=== PATIENT | female | born 1980 | race Caucasian/White ===

== ENCOUNTER 2017-11-15 03:35 | Emergency (ER) | payer OTHER ==
[2017-11-15] MEDS ORDERED: MORPHINE 4 MG/ML SYR ONE (04:21)
[2017-11-15] MEDS ORDERED: ONDANSETRON 4 MG/2 ML VIAL ONE (04:21)
[2017-11-15] MEDS ORDERED: NA CHLORIDE 0.9% 1,000 ML ONE (04:21)
[2017-11-15] MEDS ORDERED: MAGNE/ALUM HYDROXD 30 ML UCUP ONE (04:28)
[2017-11-15] MEDS ORDERED: LIDOCAINE VISCOUS 2% SOLN 15 ML UDC ONE (04:28)
[2017-11-15 04:35] LABS: Absolute Lymphocytes (CBC) 0.7 K/uL (0.7-4.9); Absolute Monocytes 0.4 K/uL (0.1-1.3); Absolute Neutrophil 5.9 K/uL (1.8-8.0); Basophils % 0.4 % (0-1.3); Eosinophils % 0.3 % (0-4.4); Hematocrit 39.2 % (36.0-45.0); Lymphocytes % 10.4 % (15.3-44.8); MCH 31.1 pg (27.0-35.0); MCV 93.7 fL (80-100); MPV 8.3 fL (7.6-11.3); Monocytes % 5.3 % (3.3-12.3); RBC Red Blood Cell Count 4.18 M/uL (3.86-4.86)
[2017-11-15 04:53] LABS: Bicarbonate 25 mEq/L (21-31); Glucose Level 122 mg/dL (65-120); Lipase 19 U/L (22-51); Potassium 4.3 mEq/L (3.6-5.0); Sodium Level 136 mEq/L (135-145)
[2017-11-15 04:59] LABS: ALT/SGPT 30 IU/L (10-60); AST/SGOT 47 IU/L (10-42); Albumin 4.4 g/dL (3.2-5.5); Alkaline Phosphatase 54 IU/L (42-121); Amylase Level 191 U/L (28-100); BUN Blood Urea Nitrogen 15 mg/dL (6-20); Bilirubin Direct 0.1 mg/dL (0-0.2); Bilirubin Total 0.6 mg/dL (0.3-1.2); Protein, Total 7.7 g/dL (6.0-8.3)
[2017-11-15 05:10] LABS: Urine Bacteria <20 /HPF (<20); Urine Culture Reflex Order NOT NEEDED; Urine RBC <5 /HPF (NONE SEEN)
--- NOTE | 2017-11-15 05:11 | ER ---
Nurse's Notes [facility] Name: Hayde Cotton Age: 37 yrs Sex: Female : 1980 Arrival Date: 11/15/2017 Time: 03:38 Bed 5 Private MD: Diagnosis: Acute gastritis Presentation: 11/15 03:53 Presenting complaint: Patient states: that she is having abd pain, nausea and vomiting fc that started last night at 2300. Unable to hold anything down. Denies any diarrhea. Transition of care: patient was not received from another setting of care. Onset of symptoms was November 14, 2017 at 23:00. Initial Sepsis Screen: Does the patient meet any 2 criteria? No. Patient's initial sepsis screen is negative. Does the patient have a suspected source of infection? No. Patient's initial sepsis screen is negative. Care prior to arrival: None. 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 - Social history:: Smoking status: Patient/guardian denies using tobacco. Screenin:56 Abuse screen: Denies threats or abuse. Nutritional screening: No deficits noted. fc Tuberculosis screening: No symptoms or risk factors identified. Fall Risk None identified. Assessment: 04:06 Reassessment: Patient is alert, oriented x 3, equal unlabored respirations, skin ak1 warm/dry/pink. General: Appears uncomfortable, Behavior is calm, cooperative. Pain: Complains of pain in epigastric area. Neuro: No deficits noted. Cardiovascular: No deficits noted. Respiratory: No deficits noted. GI: Abdomen is flat, Bowel sounds present X 4 quads. Reports upper abdominal pain, nausea, vomiting, since midnight. : No signs and/or symptoms were reported regarding the genitourinary system. EENT: No signs and/or symptoms were reported regarding the EENT system. Derm: No signs and/or symptoms reported regarding the dermatologic system. Musculoskeletal: No signs and/or symptoms reported regarding the musculoskeletal system. 05:08 Reassessment: Patient appears in no apparent distress at this time. Patient is alert, ak1 oriented x 3, equal unlabored respirations, skin warm/dry/pink. Patient states feeling better. Patient states symptoms have improved. Vital Signs: 03:56 BP 129 / 79; Pulse 90; Resp 18; Temp 98.2(O); Pulse Ox 100% on R/A; Weight 71.21 kg fc (R); Height 5 ft. 2 in. (157.48 cm) (R); Pain 4/10; 04:06 BP 120 / 80; Pulse 89; Resp 18; Pulse Ox 100% on R/A; ak1 03:56 Body Mass Index 28.72 (71.21 kg, 157.48 cm) fc ED Course: 03:38 Patient arrived in ED. al2 03:54 Triage completed. fc 03:56 Arm band placed on Patient placed in an exam room, on a stretcher. fc 03:56 Patient has correct armband on for positive identification. Placed in gown. Bed in low fc position. Call light in reach. 04:12 Maurilio London MD is Attending Physician. pkl 04:16 Leona Batista, TIMUR is Primary Nurse. ak1 04:25 Inserted saline lock: 20 gauge in right antecubital area, using aseptic technique. ao ,using aseptic technique. By TIMUR Delgadillo Blood collected. 05:17 No provider procedures requiring assistance completed. IV discontinued, intact, ak1 bleeding controlled, No redness/swelling at site. Pressure dressing applied. Administered Medications: 04:24 Drug: Zofran 4 mg Route: IVP; Site: right antecubital; ao 05:05 Follow up: Response: No adverse reaction ak1 04:25 Drug: NS 0.9% 1000 ml Route: IV; Rate: 1000 ml; Site: right antecubital; ao 05:11 Follow up: IV Status: Completed infusion ak1 04:25 Drug: morphine 2 mg Route: IVP; Site: right antecubital; ao 05:05 Follow up: Response: No adverse reaction ak1 04:29 Drug: GI Cocktail without - (Maalox Suspension 30 ml, Lidocaine Liquid 2 % 15 ao ml) Route: PO; 05:05 Follow up: Response: No adverse reaction ak1 Outcome: 05:11 Discharge ordered by . ok 05:17 Discharged to home ambulatory, with family. ak1 05:17 Condition: good 05:17 Discharge instructions given to patient, family, Instructed on discharge instructions, follow up and referral plans. no drinking with medication, no driving heavy equipment, medication usage, Demonstrated understanding of instructions, follow-up care, medications, Prescriptions given X 2. 05:18 Patient left the ED. ak1 Signatures: Maurilio London MD MD pkl Chretien, Felicia RN RN Leona Hilliard RN RN ak1 Jonathon Arboleda RN RN phill Alfonso, Nerissa mancera2 Corrections: (The following items were deleted from the chart) 05:09 04:06 Reassessment: Patient is alert, oriented x 3, equal unlabored respirations, skin ak1 warm/dry/pink. Patient states feeling better. Patient states symptoms have improved. ak1
--- NOTE | 2017-11-15 05:12 | EDPHYS ---
Physician Documentation [facility] Name: Hayde Cotton Age: 37 yrs Sex: Female : 1980 Arrival Date: 11/15/2017 Time: 03:38 Bed 5 Private MD: ED Physician Maurilio London HPI: 11/15 04:17 This 37 yrs old Female presents to ER via Ambulatory with complaints of pkl Vomiting. 04:17 The patient presents with abdominal pain in the epigastric area. Onset: The pkl symptoms/episode began/occurred today, 6 day(s) ago. Associated signs and symptoms: Pertinent positives: nausea and vomiting. Patient said she always has these symptoms after drinking alcoholic drinks. She drank some alcoholic drink today prior to onset of these symptoms. 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 - Social history:: Smoking status: Patient/guardian denies using tobacco. ROS: 04:17 Eyes: Negative for injury, pain, redness, and discharge, ENT: Negative for injury, pkl pain, and discharge, Neck: Negative for injury, pain, and swelling, Cardiovascular: Negative for chest pain, palpitations, and edema, Respiratory: Negative for shortness of breath, cough, wheezing, and pleuritic chest pain. 04:17 Abdomen/GI: Positive for abdominal pain, nausea and vomiting, of the epigastric area. 04:17 Back: Negative for acute changes. 04:17 : Negative for urinary symptoms. 04:17 MS/extremity: Negative for acute changes. 04:17 Skin: Negative for rash. 04:17 Neuro: Negative for altered mental status. Exam: 04:17 Head/Face: Normocephalic, atraumatic. Eyes: Pupils equal round and reactive to light, pkl extra-ocular motions intact. Lids and lashes normal. Conjunctiva and sclera are non-icteric and not injected. Cornea within normal limits. Periorbital areas with no swelling, redness, or edema. ENT: Nares patent. No nasal discharge, no septal abnormalities noted. Tympanic membranes are normal and external auditory canals are clear. Oropharynx with no redness, swelling, or masses, exudates, or evidence of obstruction, uvula midline. Mucous membranes moist. Neck: Trachea midline, no thyromegaly or masses palpated, and no cervical lymphadenopathy. Supple, full range of motion without nuchal rigidity, or vertebral point tenderness. No Meningismus. Chest/axilla: Normal chest wall appearance and motion. Nontender with no deformity. No lesions are appreciated. Cardiovascular: Regular rate and rhythm with a normal S1 and S2. No gallops, murmurs, or rubs. Normal PMI, no JVD. No pulse deficits. Respiratory: Lungs have equal breath sounds bilaterally, clear to auscultation and percussion. No rales, rhonchi or wheezes noted. No increased work of breathing, no retractions or nasal flaring. 04:17 Abdomen/GI: Bowel sounds: normal, Palpation: abdomen is soft and non-tender, mild abdominal tenderness, in the epigastric area. 04:17 Back: Exam negative for acute changes. 04:17 : Exam negative for acute changes. 04:17 Musculoskeletal/extremity: Exam is negative for acute changes. 04:17 Skin: Exam negative for rash. 04:17 Neuro: Orientation: is normal, Mentation: is normal, Cranial nerves: grossly normal, Motor: is normal. Vital Signs: 03:56 BP 129 / 79; Pulse 90; Resp 18; Temp 98.2(O); Pulse Ox 100% on R/A; Weight 71.21 kg fc (R); Height 5 ft. 2 in. (157.48 cm) (R); Pain 4/10; 04:06 BP 120 / 80; Pulse 89; Resp 18; Pulse Ox 100% on R/A; ak1 03:56 Body Mass Index 28.72 (71.21 kg, 157.48 cm) MDM: 04:12 Patient medically screened. pkl 05:10 Data reviewed: vital signs, nurses notes, lab test result(s). pkl 11/15 04:16 Order name: Amylase, Serum; Complete Time: 05:08 pkl 11/15 04:16 Order name: Basic Metabolic Panel; Complete Time: 05:08 pkl 11/15 04:16 Order name: CBC with Diff; Complete Time: 05:08 pkl 11/15 04:16 Order name: Creatinine for Radiology; Complete Time: 05:08 pkl 11/15 04:16 Order name: Hepatic Function; Complete Time: 05:08 pkl 11/15 04:16 Order name: Lipase; Complete Time: 05:08 pkl 11/15 04:16 Order name: Urine Microscopic Only; Complete Time: 05:12 pkl 11/15 04:16 Order name: IV Saline Lock; Complete Time: 04:25 pkl 11/15 04:17 Order name: Urine Dipstick--Ancillary (enter results) em1 11/15 04:17 Order name: Urine --Ancillary (enter results) em1 11/15 04:16 Order name: Labs collected and sent; Complete Time: 04:25 pkl 11/15 04:16 Order name: Urine Dipstick-Ancillary (obtain specimen); Complete Time: 04:16 pkl 11/15 04:17 Order name: Urine Dipstick-Ancillary (obtain specimen); Complete Time: 04:19 em1 11/15 04:17 Order name: Urine Test (obtain specimen); Complete Time: 04:19 em1 Administered Medications: 04:24 Drug: Zofran 4 mg Route: IVP; Site: right antecubital; ao 05:05 Follow up: Response: No adverse reaction ak1 04:25 Drug: NS 0.9% 1000 ml Route: IV; Rate: 1000 ml; Site: right antecubital; ao 05:11 Follow up: IV Status: Completed infusion ak1 04:25 Drug: morphine 2 mg Route: IVP; Site: right antecubital; ao 05:05 Follow up: Response: No adverse reaction ak1 04:29 Drug: GI Cocktail without - (Maalox Suspension 30 ml, Lidocaine Liquid 2 % 15 ao ml) Route: PO; 05:05 Follow up: Response: No adverse reaction ak1 Disposition: 11/15/17 05:11 Discharged to Home. Impression: Acute gastritis. - Condition is Stable. - Prescriptions for Protonix 40 mg Oral Tablet - take 1 tablet by ORAL route once daily; 30 tablet. Zofran 4 mg Oral Tablet - take 1 tablet by ORAL route every 12 hours As needed; 6 tablet. - Medication Reconciliation Form, Thank You Letter, Antibiotic Education, Prescription Opioid Use form. - Follow up: Private Physician; When: 2 - 3 days; Reason: Re-evaluation by your physician. - Problem is new. - Symptoms are resolved. Signatures: Dispatcher [employer] EDMaurilio Armenta MD MD pkl Chretien, Felicia, RN RN Vincent Rust em1 Leona Batista RN RN ak1 Jonathon rAboleda RN RN ao Corrections: (The following items were deleted from the chart) 05:18 05:11 11/15/2017 05:11 Discharged to Home. Impression: Acute gastritis. Condition is ak1 Stable. Forms are Medication Reconciliation Form, Thank You Letter, Antibiotic Education, Prescription Opioid Use. Follow up: Private Physician; When: 2 - 3 days; Reason: Re-evaluation by your physician. Problem is new. Symptoms are resolved. pkl
[2017-11-15 05:47] LABS: Urine Blood TRACE (NEG); Urine Glucose NEGATIVE (NEG); Urine Protein NEGATIVE (NEG); Urine pH 7.5 (5.0-7.0)
== END 2017-11-15 05:18 | disposition home or self-care (01) ==
LOC: ER 03:35
DX: K29.00 Acute gastritis without bleeding (principal); Z88.8 Allergy status to other drugs, medicaments and biological substances
CPT/HCPCS: 36415; 80048; 80076; 81003; 81015; 81025; 82150; 83690; 85025; 96361; 96374; 96375; 99284; J2405; J7030